=== PATIENT | female | born 1995 | race Asian ===

== ENCOUNTER 2019-07-25 17:17 | Emergency (ER) | payer SELFPAY ==
[~2019-07-25] VITALS: Ht 160 cm; Wt 63.5 kg
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
--- NOTE | 2019-07-25 17:35 | NUR ---
[employer] at bedside for interview.
[2019-07-25 19:02] VITALS: BP 117/85
--- NOTE | 2019-07-25 19:04 | NUR ---
PATIENT STATED SHE FELT SAFE TO GO HOME BY HERSELF, Patient discharged to home in stable condition. Written and verbal after care instructions given. Patient verbalizes understanding of instruction.
== END 2019-07-25 19:04 | disposition home or self-care (01) ==
LOC: ER 17:18
DX: S62.615A Displaced fracture of proximal phalanx of left ring finger, initial encounter for closed fracture (principal); S60.212A Contusion of left wrist, initial encounter; Y08.89XA Assault by other specified means, initial encounter; Y93.89 Activity, other specified; Y92.89 Other specified places as the place of occurrence of the external cause; Y99.8 Other external cause status
CPT/HCPCS: 73080-TC; 73090-TC; 73130-TC